=== PATIENT | female | born 1945 | race Caucasian/White ===

== ENCOUNTER → 2017-05-12 | Outpatient (CLI) | payer OTHER | LOC: CIMAGING 13:40 | PROVIDERS: ATTEND Family Medicine | DX: M54.2 Cervicalgia (principal); M50.30 Other cervical disc degeneration, unspecified cervical region | CPT/HCPCS: 72050-PO ==

== ENCOUNTER → 2018-03-07 | Outpatient (CLI) | payer OTHER | LOC: FIMAGING 10:02 | PROVIDERS: ATTEND Family Medicine | DX: Z12.31 Encounter for screening mammogram for malignant neoplasm of breast (principal) ==

== ENCOUNTER → 2018-03-16 | Outpatient (CLI) | payer OTHER | LOC: CIMAGING 16:04 | PROVIDERS: ATTEND Physician Assistant Medical | DX: S69.92XA Unspecified injury of left wrist, hand and finger(s), initial encounter (principal) | CPT/HCPCS: 73110-PO ==